=== PATIENT | male | born 1945 | race Caucasian/White ===

== ENCOUNTER 2017-07-03 08:50 | Inpatient (IN) | payer OTHER, MEDICARE ==
[2017-06-27 10:30] LABS: BILIRUBIN,URINE NEGATIVE (NEGATIVE); BLOOD, URINE NEGATIVE (NEGATIVE); CLARITY/URINE SL HAZY (CLEAR); COLOR,URINE YELLOW (YELLOW); GLUCOSE,URINE NEGATIVE (NEGATIVE); KETONES,URINE NEGATIVE (NEGATIVE); LEUKOCYTE ESTERASE ,URINE NEGATIVE (NEGATIVE); NITRITE, URINE NEGATIVE (NEGATIVE); PH,URINE 5.5 (5.0-8.0); PROTEIN URINE NEGATIVE (NEGATIVE); UROBILINOGEN,URINE 0.2 (0.2-1.0)
[2017-06-27 10:34] LABS: BASOPHILS % (AUTO) 0.5 % (0.0-2.0); EOSINOPHILS # (AUTO) 0.1 K/uL (0.0-0.4); EOSINOPHILS % (AUTO) 2.1 % (0.0-4.0); HEMOGLOBIN 13.9 g/dL (14.0-18.0); LYMPHOCYTES # (AUTO) 1.9 K/uL (1.0-5.5); LYMPHOCYTES % (AUTO) 28.1 % (20.5-51.5); MEAN CORPUSCULAR HEMOGLOBIN 31 pg (27-31); MEAN CORPUSCULAR HGB CONC 32 % (32-36); MEAN CORPUSCULAR VOLUME 96 fL (79.0-98.0); MONOCYTES # (AUTO) 0.5 K/uL (0.0-1.0); MONOCYTES % (AUTO) 7.5 % (1.7-9.3); NEUTROPHILS # (AUTO) 4.3 K/uL (1.8-7.7); NEUTROPHILS % (AUTO) 61.8 % (40.0-70.0); PLATELET COUNT (AUTO) 234 K/uL (130-430); RED BLOOD CELL COUNT(AUTO) 4.48 MIL/uL (4.2-6.2); RED CELL DISTRIBUTION WIDTH 12.3 % (9.0-15.0); WHITE BLOOD COUNT (AUTO) 6.8 K/uL (4.8-10.8)
[2017-06-27 10:38] LABS: CALCIUM 8.9 mg/dL (8.4-11.0); CREATININE 0.84 mg/dL (0.55-1.30); POTASSIUM 4.2 mmol/L (3.5-5.1)
[~2017-07-03] VITALS: Ht 180.3 cm; Wt 111.1 kg
[2017-07-03] MEDS ORDERED: LR 1,000 ML IV ONE (09:00)
[2017-07-03] MEDS ORDERED: CEFAZOLIN 2 GM IVPB PREMIX 50 ML IV ONE (09:00)
[2017-07-03] MEDS ORDERED: VANCOMYCIN HCL 1 GM/NS PREMIX 250 ML IV ONE (09:00)
[2017-07-03] MEDS ORDERED: TRANEXAMIC ACID 1,000 MG/10 ML VIAL IV ONE ×2 (10:00→14:25)
[2017-07-03] MEDS ORDERED: LIP20 PO (10:48)
[2017-07-03] MEDS ORDERED: FAMO40TA35 PO (10:48)
[2017-07-03] MEDS ORDERED: ASPI-1063 PO (10:48)
[2017-07-03] MEDS ORDERED: OMEG1CAP55 PO (10:48)
[2017-07-03] MEDS ORDERED: IBUP-1969 PO (10:48)
[2017-07-03] MEDS ORDERED: OMEP40CA33 PO (10:48)
[2017-07-03] MEDS ORDERED: METO50TA7 PO (10:48)
[2017-07-03] MEDS ORDERED: VITD2000 PO (10:48)
[2017-07-03] MEDS ORDERED: POLYMYXIN 500,000/BACIT.10,000 UNITS in NS IRR 1 L IR ONE (11:25)
[2017-07-03] MEDS ORDERED: ROPIVACAINE 0.2% 550 ML INJ SCH (12:34)
[2017-07-03] MEDS ORDERED: DIPHENHYDRAMINE INJ 50 MG/ML VIAL IVP PRN (12:45)
[2017-07-03] MEDS ORDERED: ONDANSETRON HCL 4 MG/2 ML VIAL IVP PRN ×2 (12:45→15:15)
[2017-07-03] MEDS ORDERED: OXYCODONE/ACETAMINOPHEN *10*mg/325 mg TABLET PO PRN (12:45)
[2017-07-03] MEDS ORDERED: NALBUPHINE HCL 10 MG/ML AMP IVP PRN (12:45)
[2017-07-03] MEDS ORDERED: KETOROLAC TROMETHAMINE 30 MG VIAL IVP PRN (12:45)
[2017-07-03] MEDS ORDERED: fentaNYL CITRATE/PF 100 MCG/2 ML AMP IVP PRN ×2 (12:45)
[2017-07-03] MEDS ORDERED: KETOROLAC TROMETHAMINE 30 MG VIAL IVP ONE (14:25)
[2017-07-03] MEDS ORDERED: LR 1,000 ML IV.SOLN IV ONE (14:25)
[2017-07-03] MEDS ORDERED: NS IRRIG SOLN 1000 ML IR ONE (14:25)
[2017-07-03] MEDS ORDERED: MIDAZOLAM HCL 5 MG/ML VIAL (VERSED) IV ONE (14:25)
[2017-07-03] MEDS ORDERED: ONDANSETRON HCL 4 MG/2 ML VIAL IVP ONE (14:25)
[2017-07-03] MEDS ORDERED: DIPHENHYDRAMINE HCL 25 MG CAPSULE PO PRN (15:15)
[2017-07-03 16:24] VITALS: BP_SYST 121
[2017-07-03] MEDS ORDERED: MORPHINE PCA 50 mg/50 mL NS IV PRN ×2 (16:30→19:43)
[2017-07-03] MEDS ORDERED: NALOXONE HCL 0.4 MG/ML AMP (NARCAN) IVP PRN (16:30)
[2017-07-03] MEDS: KCL 20 mEq in D5/0.45NS 1000mL 1,000 ML IV SCH (16:42)
[2017-07-03] MEDS ORDERED: MORPHINE SULFATE 10 MG/ML VIAL IVP PRN (16:45)
[2017-07-03] MEDS: KETOROLAC TROMETHAMINE 15 MG VIAL IVP SCH (17:44)
[2017-07-03] MEDS ORDERED: TRANEXAMIC ACID 1,000 MG in NS 50 ML IV ONE (18:15)
[2017-07-03 18:40] VITALS: BP_SYST 119
[2017-07-03 20:34] VITALS: BP_SYST 110
[2017-07-03] MEDS: SENNOSIDES 8.6 MG TABLET PO SCH (20:38)
[2017-07-04] MEDS: KETOROLAC TROMETHAMINE 15 MG VIAL IVP SCH ×2 (00:01→05:37)
[2017-07-04] MEDS: KCL 20 mEq in D5/0.45NS 1000mL 1,000 ML IV SCH (00:05)
[2017-07-04 02:44] VITALS: BP_SYST 110
[2017-07-04 06:16] LABS: BASOPHILS % (AUTO) 0.3 % (0.0-2.0); EOSINOPHILS % (AUTO) 0.4 % (0.0-4.0); HEMATOCRIT 33.6 % (36-54); HEMOGLOBIN 11.6 g/dL (14.0-18.0); LYMPHOCYTES # (AUTO) 1.1 K/uL (1.0-5.5); LYMPHOCYTES % (AUTO) 12.1 % (20.5-51.5); MEAN CORPUSCULAR HEMOGLOBIN 34 pg (27-31); MEAN CORPUSCULAR HGB CONC 35 % (32-36); MEAN CORPUSCULAR VOLUME 97 fL (79.0-98.0); MONOCYTES # (AUTO) 0.7 K/uL (0.0-1.0); MONOCYTES % (AUTO) 7.3 % (1.7-9.3); NEUTROPHILS # (AUTO) 7.3 K/uL (1.8-7.7); NEUTROPHILS % (AUTO) 79.9 % (40.0-70.0); PLATELET COUNT (AUTO) 186 K/uL (130-430); RED BLOOD CELL COUNT(AUTO) 3.46 MIL/uL (4.2-6.2); RED CELL DISTRIBUTION WIDTH 12.5 % (9.0-15.0); WHITE BLOOD COUNT (AUTO) 9.1 K/uL (4.8-10.8)
[2017-07-04 07:01] LABS: CALCIUM 8.4 mg/dL (8.4-11.0); CREATININE 0.88 mg/dL (0.55-1.30); POTASSIUM 5.2 mmol/L (3.5-5.1)
[2017-07-04] MEDS ORDERED: NACL 0.9% 1,000 ML IV SCH (07:24)
[2017-07-04 08:04] VITALS: BP_SYST 99
[2017-07-04] MEDS ORDERED: MULTIVITAMINS TAB 1 TABLET PO SCH ×2 (09:00)
[2017-07-04] MEDS: RIVAROXABAN 10 MG TABLET PO SCH (09:21)
[2017-07-04] MEDS: MULTIVITAMINS TAB 1 TABLET PO SCH (09:21)
[2017-07-04] MEDS: ASCORBIC ACID 500 MG TABLET PO SCH ×2 (09:22→20:34)
[2017-07-04] MEDS: NACL 0.9% 500 ML IV SCH (10:41)
[2017-07-04 12:08] VITALS: BP_SYST 122
[2017-07-04 16:50] VITALS: BP_SYST 129
[2017-07-04 20:00] VITALS: BP_SYST 134
[2017-07-04] MEDS: SENNOSIDES 8.6 MG TABLET PO SCH (20:34)
[2017-07-05 00:51] VITALS: BP_SYST 139
[2017-07-05 06:03] LABS: BASOPHILS % (AUTO) 0.1 % (0.0-2.0); EOSINOPHILS % (AUTO) 0.5 % (0.0-4.0); HEMOGLOBIN 10.7 g/dL (14.0-18.0); LYMPHOCYTES # (AUTO) 1.3 K/uL (1.0-5.5); LYMPHOCYTES % (AUTO) 13.8 % (20.5-51.5); MEAN CORPUSCULAR HEMOGLOBIN 33 pg (27-31); MEAN CORPUSCULAR HGB CONC 34 % (32-36); MEAN CORPUSCULAR VOLUME 97 fL (79.0-98.0); NEUTROPHILS # (AUTO) 6.8 K/uL (1.8-7.7); NEUTROPHILS % (AUTO) 74.6 % (40.0-70.0); PLATELET COUNT (AUTO) 154 K/uL (130-430); RED BLOOD CELL COUNT(AUTO) 3.29 MIL/uL (4.2-6.2); RED CELL DISTRIBUTION WIDTH 12.6 % (9.0-15.0); WHITE BLOOD COUNT (AUTO) 9.1 K/uL (4.8-10.8)
[2017-07-05 06:08] LABS: CALCIUM 8.4 mg/dL (8.4-11.0); CREATININE 0.87 mg/dL (0.55-1.30)
[2017-07-05 08:00] VITALS: BP_SYST 137
[2017-07-05] MEDS: RIVAROXABAN 10 MG TABLET PO SCH (09:41)
[2017-07-05] MEDS: MULTIVITAMINS TAB 1 TABLET PO SCH (09:42)
[2017-07-05] MEDS: ASCORBIC ACID 500 MG TABLET PO SCH ×2 (09:42→20:09)
[2017-07-05] MEDS: HYDROcodone/ACETAMIN 7.5-325 MG TAB PO PRN ×2 (09:48→20:10)
[2017-07-05 12:04] VITALS: BP_SYST 130
[2017-07-05 16:00] VITALS: BP_SYST 142
[2017-07-05 20:00] VITALS: BP_SYST 145
[2017-07-05] MEDS: SENNOSIDES 8.6 MG TABLET PO SCH (20:09)
[2017-07-06 01:29] VITALS: BP_SYST 141
[2017-07-06] MEDS: HYDROcodone/ACETAMIN 7.5-325 MG TAB PO PRN (05:53)
[2017-07-06 06:20] LABS: CALCIUM 8.5 mg/dL (8.4-11.0); CREATININE 1.02 mg/dL (0.55-1.30); POTASSIUM 4.3 mmol/L (3.5-5.1)
[2017-07-06 07:34] LABS: BASOPHILS % (AUTO) 0.3 % (0.0-2.0); EOSINOPHILS # (AUTO) 0.1 K/uL (0.0-0.4); EOSINOPHILS % (AUTO) 1.4 % (0.0-4.0); HEMOGLOBIN 10.4 g/dL (14.0-18.0); LYMPHOCYTES # (AUTO) 1.5 K/uL (1.0-5.5); LYMPHOCYTES % (AUTO) 15.3 % (20.5-51.5); MEAN CORPUSCULAR HEMOGLOBIN 33 pg (27-31); MEAN CORPUSCULAR HGB CONC 34 % (32-36); MEAN CORPUSCULAR VOLUME 98 fL (79.0-98.0); MONOCYTES # (AUTO) 0.9 K/uL (0.0-1.0); NEUTROPHILS # (AUTO) 7.3 K/uL (1.8-7.7); PLATELET COUNT (AUTO) 175 K/uL (130-430); RED BLOOD CELL COUNT(AUTO) 3.17 MIL/uL (4.2-6.2); RED CELL DISTRIBUTION WIDTH 12.4 % (9.0-15.0); WHITE BLOOD COUNT (AUTO) 9.8 K/uL (4.8-10.8)
[2017-07-06 08:04] VITALS: BP_SYST 128
[2017-07-06] MEDS: RIVAROXABAN 10 MG TABLET PO SCH (09:04)
[2017-07-06] MEDS: ASCORBIC ACID 500 MG TABLET PO SCH (09:04)
[2017-07-06] MEDS: MULTIVITAMINS TAB 1 TABLET PO SCH (09:04)
[2017-07-06] MEDS: NACL 0.9% 500 ML IV SCH (09:30)
[2017-07-06 11:37] VITALS: BP_SYST 140
[2017-07-06] MEDS ORDERED: MAGNESIUM CITRATE 300 ML ORAL SOLUTION PO ONE (14:00)
[2017-07-06] MEDS ORDERED: ASCO500T20 PO (15:10)
[2017-07-06] MEDS ORDERED: HYDR-551 PO (15:11)
[2017-07-06] MEDS ORDERED: RIVA10TA PO (15:11)
[2017-07-06 15:45] VITALS: BP_SYST 145
[2017-07-06 15:58] VITALS: BP_SYST 145
== END 2017-07-06 18:32 | DRG 470 ==
LOC: SMU 08:50 → STU 22:26 → SMU 07-06 12:48
PROVIDERS: ADMIT Orthopaedic Surgery; ATTEND Orthopaedic Surgery
PROC: 0SRD0J9 Replacement of Left Knee Joint with Synthetic Substitute, Cemented, Open Approach (ICD-10-PCS; principal; 2017-07-03 12:15)
DX: M17.0 Bilateral primary osteoarthritis of knee (principal); E87.5 Hyperkalemia; E66.09 Other obesity due to excess calories; I10 Essential (primary) hypertension; I25.10 Atherosclerotic heart disease of native coronary artery without angina pectoris; Z87.891 Personal history of nicotine dependence; Z95.1 Presence of aortocoronary bypass graft; Z79.82 Long term (current) use of aspirin; Z68.34 Body mass index [BMI] 34.0-34.9, adult; Z79.899 Other long term (current) drug therapy; Z82.0 Family history of epilepsy and other diseases of the nervous system; Z82.69 Family history of other diseases of the musculoskeletal system and connective tissue
CPT/HCPCS: 36415; 71046-TC; 73560-TC; 80048; 81003; 85025; 86886; 86900; 86901; 86920; 87081; 88305; 88311; 94010; 97110-GP; 97116-GP; 97530-GP; C1713; C1776; J0690; J1885; J2250; J2270; J2405; J2795; J3370; J3490; J7030; J7040; J7120